=== PATIENT | female | born 1990 | race African-American/Black ===

== ENCOUNTER 2024-12-04 14:03 | Emergency (ER) | payer OTHER, SELFPAY ==
[2024-12-04 14:20] VITALS: BP 122/77; PULSE 85; RESP 16; TEMP 36.3; O2SAT 97; BMI 48.2
--- NOTE | 2024-12-04 14:25 | EKG_ITS ---
[address] [address] [id number] [address] [address] Test Date: 2024-12-04 Pat Name: Julissa Graves Department: Room: Gender: Female Cytology Manager: SELIN : 1990 Requested By: Order Number: [id number] Reading MD: Arjun Soni Measurements Intervals [place] Rate: 81 P: 35 [place]: 154 QRS: 9 QRSD: 86 T: 6 QT: 352 QTc: 408 Interpretive Statements Normal sinus rhythm Nonspecific T wave abnormality Electronically Signed On 12-05-2024 16:24:23 PDT by Arjun Soni
--- NOTE | 2024-12-04 17:20 | DI.RAD.S_ITS ---
PROCEDURE: XR CHEST 1V INDICATIONS: Chest Pain TECHNIQUE: One view of the chest was acquired. COMPARISON: None. FINDINGS: Surgical changes and devices: Cholecystectomy clips. Lungs and pleura: Lungs are clear. No pleural effusions or pneumothorax. Mediastinum: Mediastinal contours appear normal. Heart size is normal. Bones and chest wall: No suspicious bony lesions. Overlying soft tissues appear unremarkable. IMPRESSION: No acute cardiopulmonary abnormality is seen. Dictated by: Berry Mercer M.D. on 12/04/2024 at 17:53 Approved by: Berry Mercer M.D. on 12/04/2024 at 17:54
[2024-12-04 17:55] LABS: Add Manual Diff / Slide Review NO; Basophils Absolute Auto 100 /uL (0-100); Basophils Percent Auto 0.5 % (0-2); Eosinophils Absolute Auto 200 /uL (0-450); Eosinophils Percent Auto 1.4 % (2-4); Hematocrit 40.9 % (36-46); Hemoglobin 13.6 g/dL (12.0-16.0); Lymphocytes Absolute Auto 3100 /uL (1100-4500); Lymphocytes Percent Auto 26.4 % (25-40); Mean Corpuscular HGB Conc 33.3 % (30-36); Mean Corpuscular Hemoglobin 27.2 PG (26-34); Mean Corpuscular Volume 81.8 fL (80-100); Monocytes Absolute Auto 400 /uL (0-900); Monocytes Percent Auto 3.8 % (3-14); Neutrophils Absolute Auto 8000 /uL (1500-7000); Neutrophils Percent Auto 67.9 % (50-75); Platelet Count 342 X10^3/uL (150-400); White Blood Cell Count 11.8 X10^3/uL (4.5-11.0)
[2024-12-04 18:03] LABS: INR 1.1 (0.9-1.3); Prothrombin Time 12.1 SECONDS (9.4-12.5)
[2024-12-04 18:05] LABS: PTT Partial Thromboplastin Tim 39 SECONDS (25.1-36.5)
[2024-12-04 18:12] LABS: Alanine Aminotransferase 17 IU/L (<35); Albumin 4.4 g/dL (3.5-5.0); Albumin Globulin Ratio 1.2 (1.0-2.8); Alkaline Phosphatase 128 U/L (38-126); Aspartate Aminotransferase 24 IU/L (14-36); BUN Creatinine Ratio 20.9 (6-22); Bilirubin Total 0.6 mg/dL (0.2-1.3); Blood Urea Nitrogen 14 mg/dL (7-17); Calcium 9.5 mg/dL (8.4-10.2); Carbon Dioxide 27 mmol/L (22-32); Chloride 103 mmol/L (98-107); Creatine Kinase 41 U/L (30-135); Estimated Glomerular Filt Rate > 60 mL/min (>60); Globulin 3.8 g/dL (1.7-4.1); Glucose 94 mg/dL (70-99); HEMOLYSIS < 15 (0-50); Lipase 48 U/L (23-300); Magnesium 1.8 mg/dL (1.6-2.3); Sodium 139 mmol/L (137-145); Total Protein 8.2 g/dL (6.3-8.2)
[2024-12-04 18:23] LABS: NT-proBNP (BNP-Adult 18+) 41 pg/mL (<125); Troponin I < 0.012 ng/mL (0.01-0.034)
[2024-12-04 20:22] VITALS: PULSE 91; O2SAT 96
[2024-12-04 20:30] VITALS: PULSE 97; O2SAT 96
[2024-12-04 20:31] VITALS: BP 142/74; PULSE 88; RESP 20; O2SAT 96
--- NOTE | 2024-12-04 20:43 | ED.CHESTPAIN ---
HPI - Chest Pain General Chief Complaint: Chest Pain Stated Complaint: chest+back pain, nausea , dizziness Time Seen by Provider: 12/04/24 20:43 Source: patient, RN notes reviewed and old records reviewed Mode of arrival: Ambulatory Limitations: no limitations History of Present Illness HPI narrative: 34-year-old female with history of hypertension, dyslipidemia and cystic fibrosis with complaint of chest pressure starting when she awoke this morning at 6:00 a.m., notes substernal radiates towards the back. Patient states it did not not start last night. She was describes it as substernal radiating to her back without any radiation elsewhere. States nothing seems to make it better or worse. She does note that it is resolved after having a bowel movement here in the department. She denies fevers or chills. States she was had some itching of her eyes and some cough which she relates to seasonal allergies. She denies any shortness of breath currently but states she felt a little short of breath when it was occurring. She denies any nausea or vomiting. She denies any syncope or lightheadedness. She denies any issues with bowel movements or urination. Denies any swelling of extremities. Patient states she was not had similar in the past. She takes lisinopril, atorvastatin [id number] fish oil and loratadine daily. She states she does not take any medications as just watch for her cystic fibrosis. States only prior surgery was cholecystectomy. Denies any drug allergies. No tobacco, occasional alcohol, no recreational drugs. Sister on the phone notes she was some secondhand smoke exposure. She has a family history of hypertension with the dad but they both deny any other cardiac or embolic or vascular history. Patient denies any long distance travel for prolonged periods, no estrogen supplements. Related Data Allergies Allergy/AdvReac Type Severity Reaction Status Date / Time No Known Drug Allergies Allergy Verified 12/04/24 17:29 Review of Systems Review of Systems ROS Unobtainable: All systems reviewed & are unremarkable except as noted in HPI and below Exam Narrative Exam Narrative: GENERAL: Alert and oriented x three, obese female in mild distress HEENT: Head normocephalic, atraumatic, EOMI, pupils reactive, face symmetric, moist mucous membranes NECK: Supple, full range of motion CARDIOVASCULAR: Regular rate and rhythm without murmurs, rubs or gallops. No JVD. No edema bilateral lower extremities. RESPIRATORY: Breath sounds equal bilaterally, no wheezes rales or rhonchi. No tachypnea, no accessory muscle use ABDOMEN: Soft, nontender. Normoactive bowel sounds all 4 quadrants. No guarding or rebound, rigidity, no mass : No CVA tenderness EXTREMITIES: Normal range of motion, no clubbing or edema. Neurovascularly intact NEUROLOGICAL: Cranial nerves II through XII grossly intact. Moving all extremities SKIN: Warm, dry, no petechiae, no rashes or lesions. Initial Vital Signs Initial Vital Signs: Vital Signs Temperature 97.3 F L 12/04/24 14:20 Pulse Rate 85 12/04/24 14:20 Respiratory Rate 16 12/04/24 14:20 Blood Pressure 122/77 12/04/24 14:20 Pulse Oximetry 97 12/04/24 14:20 Oxygen Delivery Method Room Air 12/04/24 14:20 Scores HEART Score Heart Score history: Slightly Suspicious Heart Score EKG: Non-Specific repolarization disturbance Heart Score Age: < 45 years old Heart Score risk factors: 1-2 risk factors Heart Score troponin: < or = to normal limit Heart Score Total: 2 PERC Score Age greater than or equal to 50 years: No Heart rate greater than or equal to 100 bpm: No Room Air O2 Sat less than 95%: No Unilateral leg swelling: No Recent trauma or surgery: No Hemoptysis: No Prior PE or DVT: No Hormone Use: No Total PERC Score: 0 Course Orders Ordered: Discontinued Medications Aspirin (Aspirin 81 Mg Chew Tab) 324 mg PO NOW ONE Stop: 12/04/24 17:20 Last Admin: 12/04/24 17:53 Dose: Not Given Documented By: MARIO Vital Signs Vital signs: Vital Signs - 8 hr 12/04/24 14:20 12/04/24 20:22 12/04/24 20:30 Temperature 97.3 F L Pulse Rate 85 91 H 97 H Respiratory Rate 16 Blood Pressure 122/77 Pulse Oximetry 97 96 96 Oxygen Delivery Method Room Air 12/04/24 20:31 12/04/24 20:31 12/04/24 21:00 Temperature Pulse Rate 88 Respiratory Rate 20 Blood Pressure 142/74 H 132/77 Pulse Oximetry 96 Oxygen Delivery Method 12/04/24 21:00 12/04/24 21:30 12/04/24 21:30 Temperature Pulse Rate 91 H 89 Respiratory Rate 20 23 Blood Pressure 122/78 Pulse Oximetry 95 95 Oxygen Delivery Method MDM - Chest Pain Lab Data 12/04/24 17:48 12/04/24 17:48 Labs: Lab Results 12/04/24 12/04/24 Range/Units 17:48 21:05 WBC 11.8 H (4.5-11.0) X10^3/uL RBC 5.00 (4.0-5.2) X10^6/uL Hgb 13.6 (12.0-16.0) g/dL Hct 40.9 (36-46) % MCV 81.8 (80-100) fL MCH 27.2 (26-34) PG MCHC 33.3 (30-36) % RDW 14.0 (11.6-14.8) % Plt Count 342 (150-400) X10^3/uL Neut % (Auto) 67.9 (50-75) % Lymph % (Auto) 26.4 (25-40) % [place] % (Auto) 3.8 (3-14) % Eos % (Auto) 1.4 L (2-4) % Baso % (Auto) 0.5 (0-2) % Neut # (Auto) 8000 H (7376-7509) /uL Lymph # (Auto) 3100 (0874-2999) /uL [place] # (Auto) 400 (0-900) /uL Eos # (Auto) 200 (0-450) /uL Baso # (Auto) 100 (0-100) /uL PT 12.1 (9.4-12.5) SECONDS INR 1.1 (0.9-1.3) APTT 39 H (25.1-36.5) SECONDS D-Dimer < 215 (<500) ng/ml Sodium 139 (137-145) mmol/L Potassium 4.0 (3.4-5.1) mmol/L Chloride 103 (98-107) mmol/L Carbon Dioxide 27 (22-32) mmol/L BUN 14 (7-17) mg/dL Creatinine 0.67 (0.52-1.04) mg/dL Estimated GFR > 60 (>60) mL/min BUN/Creatinine Ratio 20.9 (6-22) Glucose 94 (70-99) mg/dL Calcium 9.5 (8.4-10.2) mg/dL Magnesium 1.8 (1.6-2.3) mg/dL Total Bilirubin 0.6 (0.2-1.3) mg/dL AST 24 (14-36) IU/L ALT 17 (<35) IU/L Alkaline Phosphatase 128 H (38-126) U/L Total Creatine Kinase 41 (30-135) U/L Troponin I < 0.012 < 0.012 (0.01-0.034) ng/mL NT-Pro-B Natriuret Pep 41 (<125) pg/mL Total Protein 8.2 (6.3-8.2) g/dL Albumin 4.4 (3.5-5.0) g/dL Globulin 3.8 (1.7-4.1) g/dL Albumin/Globulin Ratio 1.2 (1.0-2.8) Lipase 48 (23-300) U/L ECG Data Attestation: I personally reviewed and interpreted this ECG as follows: Prior ECG tracings: not available for review Interpretation: Sinus rhythm rate 81 VA 154 QRS 86 QTC of 352, no acute ST elevation appreciated, no depression T-wave inverted in lead 3. Nonspecific T-wave change. No prior for comparison. Repeat EKG sinus rhythm, rate 86 VA 160 QRS 82 QTC of 421, no acute ST elevation or depression appears similar to prior. MDM Narrative Medical decision making narrative: EKG shows sinus rhythm nonspecific change no priors for comparison. Repeat EKG shows no change. Labs show white count 11.8 hemoglobin is 13.6 platelets are 342, INR is normal PTT is 39, electrolytes BUN creatinine are all normal, glucose is 94 alk-phos is 128 troponins less than 0.012 with a CK of 41, BNP is 41 with a lipase of 48. Repeat troponin is less than 0.012. Dimer is negative. Chest x-ray shows no acute change. PERC is 0. Heart score is 2. Patient was felt appropriate for discharge, plan for follow up persistent or new changes. Discharge Plan Departure Patient Disposition: Home Clinical Impression: Chest pain Instructions: DI for Chest Pain Activity Restrictions/Additional Instructions: Follow up with your physician for recheck. Please return for new or worsening symptoms, increasing chest pain, shortness of breath, lightheadedness or passing out, new swelling of your extremities, persistent vomiting, black or bloody stools or other new or concerning changes. Stand Alone Forms: Patient Portal/API/Survey
[2024-12-04 21:00] VITALS: BP 132/77; PULSE 91; RESP 20; O2SAT 95
[2024-12-04 21:12] LABS: D Dimer < 215 ng/ml (<500)
--- NOTE | 2024-12-04 21:14 | EKG_ITS ---
[address] [address] Test Date: 2024-12-04 Pat Name: Julissa Graves Department: [facility] Room: Gender: Female Lining Stamper: JUDI : 1990 Requested By: Order Number: [id number] Reading MD: Arjun Soni Measurements Intervals [place] Rate: 86 P: 49 [place]: 160 QRS: 15 QRSD: 82 T: 6 QT: 352 QTc: 421 Interpretive Statements Normal sinus rhythm Nonspecific T wave abnormality Electronically Signed On 12-05-2024 16:24:26 PDT by Arjun Soni
[2024-12-04 21:30] VITALS: BP 122/78; PULSE 89; RESP 23; O2SAT 95
[2024-12-04 21:35] LABS: Troponin I < 0.012 ng/mL (0.01-0.034)
== END 2024-12-04 22:07 | disposition home or self-care (01) ==
PROVIDERS: Student in an Organized Health Care Education/Training Program; Emergency Provider Emergency Medicine
DX: R07.9 Chest pain, unspecified (principal); R42 Dizziness and giddiness
CPT/HCPCS: 36415; 71045; 80053; 82550; 83690; 83735; 83880; 84484; 85025; 85379; 85610; 85730; 93005; 99283; 99284